=== PATIENT | female | born 1960 | race Caucasian/White ===

== ENCOUNTER → 2016-11-14 | Outpatient (CLI) | payer MEDICARE | LOC: SLEEP 21:30 | DX: G47.30 Sleep apnea, unspecified (principal) | CPT/HCPCS: 95811 ==

== ENCOUNTER → 2017-01-11 | Outpatient (CLI) | payer MEDICARE ==
[2017-01-11 09:01] LABS: HEMOGLOBIN 11.2 gm/dl (12.3-15.3); WHITE BLOOD COUNT 5.7 K/UL (4.5-11.0)
[2017-01-11 09:18] LABS: BUN/CREATININE RATIO 14 (0-10)
== END ==
LOC: LAB 07:44
PROVIDERS: Nurse Practitioner
DX: M75.82 Other shoulder lesions, left shoulder (principal); E13.9 Other specified diabetes mellitus without complications; J44.9 Chronic obstructive pulmonary disease, unspecified; E78.5 Hyperlipidemia, unspecified; G47.33 Obstructive sleep apnea (adult) (pediatric); W07.XXXA Fall from chair, initial encounter; E11.9 Type 2 diabetes mellitus without complications; E66.9 Obesity, unspecified; M54.9 Dorsalgia, unspecified
CPT/HCPCS: 36415; 73030; 80053; 80061; 83036; 84443; 85025

== ENCOUNTER → 2020-12-02 | Outpatient (CLI) | payer MEDICARE | LOC: KOH-I 08:40 | DX: M17.0 Bilateral primary osteoarthritis of knee (principal); M89.8X6 Other specified disorders of bone, lower leg | CPT/HCPCS: 73502; 73564 ==

== ENCOUNTER → 2020-12-09 | Outpatient (CLI) | payer MEDICARE | LOC: KOH-I 12-08 13:30 | DX: M79.604 Pain in right leg (principal) | CPT/HCPCS: 93926; 93971 ==

== ENCOUNTER → 2020-12-14 | Outpatient (CLI) | payer MEDICARE | LOC: EMI 12:59 | DX: I63.9 Cerebral infarction, unspecified (principal) | CPT/HCPCS: 70551 ==

== ENCOUNTER → 2020-12-29 | Outpatient (CLI) | payer MEDICARE | LOC: CATH 09:54 | DX: R55 Syncope and collapse (principal); Z20.822 Contact with and (suspected) exposure to COVID-19 | CPT/HCPCS: U0002 ==

== ENCOUNTER → 2021-02-16 | Outpatient (CLI) | payer MEDICARE | LOC: EXRD 01-20 13:00 → HEART 5 14:56 → EXRD 16:00 | DX: R06.02 Shortness of breath (principal); R55 Syncope and collapse; I65.23 Occlusion and stenosis of bilateral carotid arteries; R93.1 Abnormal findings on diagnostic imaging of heart and coronary circulation; I34.8 Other nonrheumatic mitral valve disorders; I51.7 Cardiomegaly | CPT/HCPCS: 93306; 93880 ==

== ENCOUNTER 2021-07-24 15:17 | Inpatient (IN) | payer MEDICARE, MEDICAID ==
[~2021-07-24] VITALS: Ht 154.9 cm; Wt 113.4 kg
[2021-07-24 17:39] LABS: HEMOGLOBIN 10.9 gm/dl (12.3-15.3); RED BLOOD COUNT 3.82 M/UL (4.00-5.10); WHITE BLOOD COUNT 7.9 K/UL (4.5-11.0)
[2021-07-24 20:01] LABS: BUN/CREATININE RATIO 26 (0-10)
[2021-07-25] MEDS ORDERED: SULFAMETHOXAZO1 EACH PO (01:45)
[2021-07-25] MEDS ORDERED: PHENAZOPYRIDIN200 MG PO (01:45)
[2021-07-25] MEDS ORDERED: CLONAZEPAM1 MG PO (01:46)
[2021-07-25] MEDS ORDERED: CYCLOBENZAPRINE10 MG PO (01:46)
[2021-07-25] MEDS ORDERED: GABAPENTIN800 MG PO (01:47)
[2021-07-25] MEDS ORDERED: PRIMIDONE250 MG PO (01:48)
[2021-07-25] MEDS ORDERED: PERCOCET 5/325 T1 EA PO (01:48)
[2021-07-25] MEDS ORDERED: ALLERGY RELIEF10 M1 PO (01:49)
[2021-07-25] MEDS ORDERED: TRAMADOL HCL50 MG PO (01:49)
[2021-07-25] MEDS ORDERED: FLUOXETINE HCL40 MG PO ×2 (01:49→01:54)
[2021-07-25] MEDS ORDERED: OMEPRAZOLE20 MG PO (01:50)
[2021-07-25] MEDS ORDERED: METOPROLOL SUC100 MG PO (01:50)
[2021-07-25] MEDS ORDERED: LISINOPRIL30 MG PO (01:50)
[2021-07-25] MEDS ORDERED: ATORVASTATIN CA20 MG PO (01:51)
[2021-07-25] MEDS ORDERED: ISOSORBIDE MONO60 MG PO (01:51)
[2021-07-25] MEDS ORDERED: BUSPAR 10MG10 MG PO (01:52)
[2021-07-25] MEDS ORDERED: LASIX TAB 20 MG20 MG PO (01:52)
[2021-07-25] MEDS ORDERED: VITAMIN D21250 MCG PO (01:53)
[2021-07-25] MEDS ORDERED: SUPER CALCIUM600 MG PO (01:54)
[2021-07-25] MEDS ORDERED: POTASSIUM CHLO20 ME2 PO (01:55)
[2021-07-25] MEDS ORDERED: VITAMIN D3125 MCG PO (01:56)
[2021-07-25] MEDS ORDERED: ADULT LOW DOSE81 MG PO (01:56)
[2021-07-25] MEDS ORDERED: HUMALOG100 UNIT/3 SC (01:58)
[2021-07-25] MEDS ORDERED: LEVEMIR FL100 UNIT/1 SQ (01:59)
[2021-07-25 06:58] LABS: RED BLOOD COUNT 3.91 M/UL (4.00-5.10); WHITE BLOOD COUNT 6.7 K/UL (4.5-11.0)
[2021-07-25 07:31] LABS: BUN/CREATININE RATIO 31 (0-10)
[2021-07-26 07:40] LABS: HEMOGLOBIN 11.1 gm/dl (12.3-15.3); RED BLOOD COUNT 3.97 M/UL (4.00-5.10); WHITE BLOOD COUNT 5.7 K/UL (4.5-11.0)
[2021-07-26 08:21] LABS: BUN/CREATININE RATIO 19 (0-10)
[2021-07-27 07:45] LABS: HEMOGLOBIN 10.2 gm/dl (12.3-15.3); RED BLOOD COUNT 3.71 M/UL (4.00-5.10); WHITE BLOOD COUNT 6.4 K/UL (4.5-11.0)
[2021-07-27 08:18] LABS: BUN/CREATININE RATIO 18 (0-10)
--- NOTE | 2021-07-28 14:59 | NUR ---
Dr Up was called at approximately 1430 to ask about the brace the patient has been waiting for. He stated that he would find the ash collector and call primary nurse back.
[2021-07-29 10:28] LABS: HEMOGLOBIN 11.7 gm/dl (12.3-15.3); WHITE BLOOD COUNT 6.8 K/UL (4.5-11.0)
[2021-07-29 10:29] LABS: RED BLOOD COUNT 4.1 M/UL (4.00-5.10)
[2021-07-29 10:51] LABS: BUN/CREATININE RATIO 21 (0-10)
[2021-07-29 15:54] LABS: HEMOGLOBIN 10.1 gm/dl (12.3-15.3)
[2021-07-29 15:57] LABS: RED BLOOD COUNT 3.56 M/UL (4.00-5.10)
[2021-07-29 16:36] LABS: BUN/CREATININE RATIO 22 (0-10)
--- NOTE | 2021-07-30 02:36 | NUR ---
0220- WENT IN AND PULLED THE BLIND DOWN ON THE WINDOW IN THE PATIENT'S ROOM DUE TO APPROACHING SEVERE WEATHER. NOTICED THE PATIENT WAS AWAKE LYING IN BED AND I EXPLAINED TO HER WHAT I WAS THERE DOING PREPARING FOR THE WEATHER TO HELP KEEP HER SAFE. I ASKED HER HOW WAS SHE FEELING AND SHE STATED HER HAND WAS HURTING I OFFERED TO PROP IT UP WITH A PILLOW TO HELP WITH THE SWELLING IN HER HAND AND EXTREMITY POST OP SURGERY AND PAIN MEDICATION. SHE STATED SHE HAD CALLED OUT USING HER CALL LIGHT AND STAFF HAD ANSWERED IT. I APOLOGIZED TO HER AND TOLD HER I AM SORRY NO ONE HAD TOLD ME ABOUT HER CALLING OUT BUT THAT I WOULD GET RIGHT ON IT AND GET HER THE MEDICATION. SHE ASKED TO SPEAK WITH THE CONGRESSIONAL DISTRICT AIDE. JUDE HIGUERA RN CONGRESSIONAL DISTRICT AIDE IS CURRENTLY IN THE ROOM SPEAKING WITH THE PATIENT.
--- NOTE | 2021-07-30 03:36 | NUR ---
0300- CHECKED ON THE PATIENT TO SEE IF HER PAIN WAS BEING RELIEVED SHE STATED "YES THANK YOU, YOU HAVE TAKEN GOOD CARE OF ME." I OFFERED HER A HEATING PAD ALSO TO HELP AND SHE STATED SHE WOULD LIKE THAT. SHE IS RESTING IN BED NO COMPLAINTS AT THIS TIME.
--- NOTE | 2021-07-30 03:57 | NUR ---
0345- PATIENT'S SWELLING IN HER RIGHT HAND/FINGERS HAS DECREASED SINCE BEING ELEVATED UP ON A PILLOW. I REHEATED UP HER HEATING PAD AND PLACED IT ON HER RIGHT SHOULDER AREA. SHE STATES SHE IS FEELING MUCH BETTER AND THANKED ME FOR TAKING SUCH GOOD CARE OF HER.
--- NOTE | 2021-07-30 06:50 | NUR ---
0600- PATIENT HAS HAD INCREASED PAIN SUDDENLY WITH RIGHT SHOULDER AREA. SHE HAS INCREASED PAIN AND BRUISING WITH THE RIGHT ARM S/P SURGICAL PROCEDURE. SHE HAS 2+ PULSE IN THE RIGHT WRIST AND LESS THAN 2 SECOND CAP REFILL. SHE IS ELEVATED UP ON 2 PILLOWS AND HAS ICE PACKS APPLIED TO THE AREA. DR. ESCALONA NOTIFIED, OBTAINED AN ORDER FOR PAIN MEDICATION AND STATED HE WOULD BE IN THIS MORNING TO SEE THE PATIENT.
[2021-07-30 06:53] LABS: RED BLOOD COUNT 3.53 M/UL (4.00-5.10)
[2021-07-30 07:11] LABS: BUN/CREATININE RATIO 26 (0-10)
[2021-08-01 09:28] LABS: HEMOGLOBIN 9.2 gm/dl (12.3-15.3); RED BLOOD COUNT 3.22 M/UL (4.00-5.10); WHITE BLOOD COUNT 7.2 K/UL (4.5-11.0)
[2021-08-01 10:12] LABS: BUN/CREATININE RATIO 33 (0-10)
== END 2021-08-01 15:44 | disposition home health service (06) | DRG 493 ==
LOC: ER1 15:17 → CDU 20:50 → MED SURG 4 20:50
PROVIDERS: Emergency Medicine; Internal Medicine; Nurse Practitioner Family; Orthopaedic Surgery; Physician Assistant; ADMIT Internal Medicine Infectious Disease
PROC: 0PSF06Z Reposition Right Humeral Shaft with Intramedullary Internal Fixation Device, Open Approach (ICD-10-PCS; principal; 2021-07-29 16:30)
DX: S42.391A Other fracture of shaft of right humerus, initial encounter for closed fracture (principal); F11.20 Opioid dependence, uncomplicated; E78.5 Hyperlipidemia, unspecified; I10 Essential (primary) hypertension; W01.0XXA Fall on same level from slipping, tripping and stumbling without subsequent striking against object, initial encounter; G89.4 Chronic pain syndrome; F41.9 Anxiety disorder, unspecified; F32.A Depression, unspecified; Z20.822 Contact with and (suspected) exposure to COVID-19; G25.0 Essential tremor; E11.65 Type 2 diabetes mellitus with hyperglycemia; Z96.653 Presence of artificial knee joint, bilateral; Y92.89 Other specified places as the place of occurrence of the external cause; Y99.8 Other external cause status; Y93.89 Activity, other specified; Z79.899 Other long term (current) drug therapy; Z79.4 Long term (current) use of insulin
CPT/HCPCS: 36415; 70450; 72125; 73030; 73060; 73080; 73200; 73564; 76000; 80048; 80053; 82140; 82550; 82553; 82962; 83036; 83874; 84484; 85025; 85027; 85610; 86850; 86900; 86901; 93005; 97116; 97161; 97162; 97166; 97530; 97530-GP-CQ; 97535; 99285; G0378; J0360; J0690; J1100; J1170; J1650; J2250; J2270; J2405; J2704; J2710; J2795; J3010; J3370; J7030; J7120; U0002

== ENCOUNTER → 2022-02-08 | Outpatient (CLI) | payer MEDICARE ==
[~2022-02-08] MED LIST: ADULT LOW DOSE81 MG PO; ALLERGY RELIEF10 M1 PO; ATORVASTATIN CA20 MG PO; BUSPAR 10MG10 MG PO; CLONAZEPAM1 MG PO; CYCLOBENZAPRINE10 MG PO; FLUOXETINE HCL40 MG PO; GABAPENTIN800 MG PO; HUMALOG100 UNIT/3 SC; ISOSORBIDE MONO60 MG PO; LASIX TAB 20 MG20 MG PO; LEVEMIR FL100 UNIT/1 SQ; LISINOPRIL30 MG PO; METOPROLOL SUC100 MG PO; OMEPRAZOLE20 MG PO; PERCOCET 5/325 T1 EA PO; PHENAZOPYRIDIN200 MG PO; POTASSIUM CHLO20 ME2 PO; PRIMIDONE250 MG PO; SULFAMETHOXAZO1 EACH PO; SUPER CALCIUM600 MG PO; TRAMADOL HCL50 MG PO; VITAMIN D21250 MCG PO; VITAMIN D3125 MCG PO
== END ==
LOC: KOH-I 11:35
DX: M25.571 Pain in right ankle and joints of right foot (principal); S82.431A Displaced oblique fracture of shaft of right fibula, initial encounter for closed fracture
CPT/HCPCS: 73610

== ENCOUNTER → 2022-04-26 | Outpatient (CLI) | payer MEDICARE | LOC: KOH-I 13:24 | DX: M79.671 Pain in right foot (principal); M79.89 Other specified soft tissue disorders | CPT/HCPCS: 73630 ==